=== PATIENT | female | born 1945 | race Caucasian/White ===

== ENCOUNTER 2016-12-21 12:22 | Emergency (ER) | payer MEDICARE ==
[~2016-12-21] VITALS: Ht 165.1 cm; Wt 58.0 kg
[~2016-12-21 12:22] MED LIST: BENA40TA PO; CYMB60CA PO; GABA250S PO; LACT20SO4 PO; PROP10TA6 PO; SPIR25TA PO; Z.0.UNKNOWN
[2016-12-21 12:34] VITALS: BP 137/73; PULSE 98; RESP 16; TEMP 98.3; O2SAT 96
[2016-12-21] MEDS ORDERED: CYMB60CA PO (12:47)
[2016-12-21] MEDS ORDERED: LACT10SO PO (12:47)
[2016-12-21] MEDS ORDERED: NEUR300C PO (12:47)
[2016-12-21] MEDS ORDERED: HYDR-4107 PO (12:47)
[2016-12-21] MEDS ORDERED: LISI2.5T3 PO (12:47)
--- NOTE | 2016-12-21 14:04 | PD ---
HPI Chief Complaint: Fall Time Seen by Provider: 13:00 Travel History International Travel<30 days: No Contact w/Intl Traveler<30days: No Traveled to known affect area: No History of Present Illness HPI 71-year-old female presents to the emergency room for evaluation of left-sided facial laceration that occurred after she fell out of her bed last night. Patient states her pain is approximately 2 feet off the ground and she had a bad dream which caused her to roll over to the right. She struck her head on the nightstand before landing on the ground. She is unsure if there was loss of consciousness. Patient denies any other injuries. She denies neck pain, back pain, upper or lower extremity pain. She denies upper or lower extremity paresthesias. Patient denies being on blood thinners. Last tetanus was less than 5 years ago. PFSH Past Medical History Hx Anticoagulant Therapy: No Anxiety: Yes Cardiovascular Problems: No Diabetes: No Diminished Hearing: Yes Genitourinary: No Hepatitis: Yes (C) Hypertension: Yes Musculoskeletal: Yes (OSTEOMYLITIS) Neurologic: No Reproductive: No Respiratory: No Tetanus Vaccination: < 5 Years ?: Not Menopausal: Yes Past Surgical History Abdominal Surgery: No Cardiac Surgery: No Ear Surgery: No Endocrine Surgery: No Eye Surgery: No Genitourinary Surgery: No Gynecologic Surgery: No Neurologic Surgery: No Oral Surgery: No Thoracic Surgery: No Other Surgery: Yes Social History Alcohol Use: Yes (DAILY, QUIT 10 DAYS AGO) Tobacco Use: No Substance Use: Yes (WEED--OCCASIONALLY) Allergies-Medications (Allergen,Severity, Reaction): Coded Allergies: No Known Allergies (Verified , 12/21/16) Reported Meds & Prescriptions Reported Meds & Active Scripts Active Reported Lactulose Liq (Lactulose) 10 Gm/15 Ml Soln 30 Ml PO Q6H PRN Hydrocodone-Acetaminophen 5-300 Mg Tab 1 Tab PO Q4H PRN Cymbalta DR (Duloxetine HCl) 60 Mg Capdr 60 Mg PO DAILY Neurontin (Gabapentin) 300 Mg Cap 300 Mg PO HS Lisinopril 2.5 Mg Tab 2.5 Mg PO DAILY Review of Systems Except as stated in HPI: all other systems reviewed are Neg Physical Exam Narrative GENERAL: Well-developed, well-nourished female in no acute distress. Afebrile. Ambulatory. SKIN: Warm and dry. Patient has periorbital ecchymosis of the right eye. There is a 1 cm L-shaped laceration that is well approximated and nonbleeding. HEAD: Atraumatic. Normocephalic. No weldon sign. EYES: PERRL, EOMI, no discharge or injection. No scleral icterus. ENT: Mucosa pink and moist. No erythema or exudates. No uvular edema. No uvular , palatal, or tonsillar deviation. Airway patent. EARS: Bilateral pinnae and external canals appear within normal limits. Bilateral tympanic membranes without erythema, dullness or perforation. No hemotympanum. NECK: Trachea midline. No JVD. No midline tenderness. Full range of motion. CARDIOVASCULAR: Regular rate and rhythm. No murmur appreciated. RESPIRATORY: No accessory muscle use. Clear to auscultation. Breath sounds equal bilaterally. No crackles, rales, wheezes, or rhonchi. BACK: No CVA tenderness. No rash. No point tenderness on palpation of the spine. NEUROLOGICAL: Awake and alert. Cranial nerves 2 through 12 intact. Motor grossly within normal limits. Normal speech. Strength 5/5 and equal in upper and lower extremities. 2+ patellar and Achilles reflexes and equal bilaterally. PSYCHIATRIC: Appropriate mood and affect; insight and judgment normal. Data Data Last Documented VS Vital Signs Date Time Temp Pulse Resp B/P Pulse Ox O2 Delivery O2 Flow Rate FiO2 12/21/16 12:34 98.3 98 16 137/[address] Brain W/O Iv Contrast(Rout) (12/21/16 ) Ct Facial Bones W/O Iv Cont (12/21/16 ) MDM Medical Decision Making Medical Screen Exam Complete: Yes Emergency Medical Condition: Yes Medical Record Reviewed: Yes Differential Diagnosis Laceration versus contusion versus intracranial hemorrhage unlikely Narrative Course 71-year-old female presents to the emergency room for evaluation of closed head injury that occurred last night. Patient was lying in the bed when she rolled over and landed on the floor. She struck the area lateral to the right eye on the nightstand. Patient had unknown loss of consciousness. She has a "slight" headache and bony tenderness lateral to the right eye. She denies changes in visual acuity. She is not on blood thinners. No focal neurological deficits. Physical exam reveals a 1 cm L-shaped laceration just lateral to the right eye. It was repaired with glue and Steri-Strips. CT of the brain and facial bones are negative. Patient is stable for discharge. Told to follow up with her primary care physician or return for worsening symptoms. She understands and agrees to plan. Diagnosis Primary Impression: Closed head injury Qualified Code: S09.90XA - Closed head injury, initial encounter Additional Impression: Right eyelid laceration Qualified Code: S01.111A - Right eyelid laceration, initial encounter Referrals: Primary Care Physician Patient Instructions: General Instructions, Head Injury (ED) Additional Instructions: Rest and drink plenty of fluids. Keep wound clean and dry. Take 400-600 mg Motrin as directed, as needed for pain Follow-up with a primary care physician. Return to the emergency room for worsening symptoms. Med/Other Pt SpecificInfo: Prescription(s) given Disposition: 01 DISCHARGE HOME Condition: Stable Ceci Hudson Dec 21, 2016 14:04
--- NOTE | 2016-12-21 15:13 | RADRPT ---
EXAM DATE/TIME: 12/21/2016 14:30 [facility] COMPARISON: No previous studies available for comparison. INDICATIONS : Fall, last night. RADIATION DOSE: 48.81 CTDIvol (mGy) MEDICAL HISTORY : Hypertension. SURGICAL HISTORY : None. ENCOUNTER: Initial ACUITY: 1 day PAIN SCALE: 5/10 LOCATION: cranial TECHNIQUE: Multiple contiguous axial images were obtained of the head. Using automated exposure control and adj ustment of the mA and/or kV according to patient size, radiation dose was kept as low as reasonably a chievable to obtain optimal diagnostic quality images. FINDINGS: CEREBRUM: There is mild cerebral atrophy. Ventricles are normal in size. There is mild periventricular white ma tter low attenuation. No evidence of midline shift, mass lesion, hemorrhage or acute infarction. No extra-axial fluid collections are seen. POSTERIOR FOSSA: The cerebellum and brainstem demonstrate no acute finding. The 4th ventricle is midline. The cerebe llopontine angle is unremarkable. EXTRACRANIAL: There is right periorbital soft tissue swelling with a small amount of soft tissue air. SKULL: The calvaria is intact. No evidence of skull fracture. CONCLUSION: 1. Right periorbital soft tissue swelling. No fracture or acute intracranial abnormality is identifie d. 2. Chronic changes include generalized atrophy and periventricular white matter low attenuation rakesh cteristic of chronic microvascular ischemia. Axel El MD on December 21, 2016 at 15:09 Board Certified Radiologist. This report was verified electronically.
--- NOTE | 2016-12-21 15:21 | RADRPT ---
EXAM DATE/TIME: 12/21/2016 14:30 [facility] COMPARISON: No previous studies available for comparison. INDICATIONS : Trauma, fall. Right eye swelling. RADIATION DOSE: 56.76 CTDIvol (mGy) MEDICAL HISTORY : Hypertension. SURGICAL HISTORY : None. ENCOUNTER: Initial ACUITY: 1 day PAIN SCORE: 5/10 LOCATION: Right facial TECHNIQUE: Volumetric scanning of the facial bones was performed. Using automated exposure control and adjustme nt of the mA and/or kV according to patient size, radiation dose was kept as low as reasonably achiev able to obtain optimal diagnostic quality images. FINDINGS: ORBITS: The orbital structures are intact. The retroconal structures have a normal configuration. No radiop aque foreign bodies are seen. The lenses are normally located. NASAL BONE: The nasal bones and maxillary spine are intact. ZYGOMATIC ARCHES: Symmetric without evidence of fracture. SINUSES: The maxillary, ethmoid, and frontal sinuses are clear. No air-fluid levels seen. NASAL CAVITY: The nasal septum is intact and midline. The lacrimal ducts are intact. SOFT TISSUES: No radiopaque foreign bodies seen. There is mild right periorbital soft tissue swelling with a single locule of subcutaneous air. INTRACRANIAL: No acute intracranial abnormality is seen. OTHER: The mandible and pterygoid plates are intact. CONCLUSION: No fracture is identified. There is mild right periorbital soft tissue swelling with minimal subcutan eous air suggesting laceration. Axel El MD on December 21, 2016 at 15:16 Board Certified Radiologist. This report was verified electronically.
== END 2016-12-21 15:44 | disposition home or self-care (01) ==
LOC: PHEFT 12:22
DX: S01.111A Laceration without foreign body of right eyelid and periocular area, initial encounter (principal); W06.XXXA Fall from bed, initial encounter; Y93.84 Activity, sleeping
CPT/HCPCS: 70450; 70486